=== PATIENT | female | born 1990 | race Hispanic/Latino ===

== ENCOUNTER 2024-01-28 16:31 | Emergency (ER) | payer SELFPAY ==
[2024-01-28] MEDS ORDERED: NA CHLORIDE 0.9% 1,000 ML ONE ×2 (17:50→19:47)
[2024-01-28] MEDS ORDERED: FAMOTIDINE 20 MG/2 ML VIAL IV ONE (17:50)
[2024-01-28] MEDS ORDERED: ONDANSETRON 4 MG/2 ML VIAL ONE (17:50)
[2024-01-28 17:55] LABS: Absolute Basophils 0.1 K/uL (0-0.5); Absolute Eosinophils 0.1 K/uL (0-0.5); Absolute Lymphocytes (CBC) 2.3 K/uL (0.7-4.9); Absolute Monocytes 0.9 K/uL (0.1-1.3); Absolute Neutrophil 9.9 K/uL (1.8-8.0); Basophils % 0.7 % (0-1.3); Eosinophils % 0.5 % (0-4.4); Hematocrit 40.1 % (36.0-45.0); Hemoglobin 13.6 g/dL (12.0-15.0); Lymphocytes % 17.7 % (15.3-44.8); MCH 29.6 pg (27.0-35.0); MCV 87.2 fL (80-100); MPV 8.1 fL (7.6-11.3); Monocytes % 6.9 % (3.3-12.3); Neutrophils % 74.2 % (41.7-73.7); Platelets 329 thou/uL (152-406); Red Cell Distribution Width 13.6 % (12.1-15.2)
[2024-01-28 18:09] LABS: Albumin 4.1 g/dL (3.4-5.0); Albumin/Globulin Ratio 1.2 (1.1-1.8); Bilirubin Total 0.8 mg/dL (0.2-1.0); Globulin 3.5 g/dL (2.3-3.5); Protein, Total 7.6 g/dL (6.4-8.2)
[2024-01-28 19:00] LABS: Specific Gravity < 1.005 (1.005-1.030)
[2024-01-28 19:01] LABS: Specific Gravity < 1.005 (1.005-1.030); Sqamous Epithelial <5 /HPF (None Seen); Urine Bacteria <20 /HPF (<20); Urine Bilirubin NEGATIVE (Negative); Urine Blood Negative (Negative); Urine Clarity Turbid (Clear); Urine Color Colorless (Yellow); Urine Crystals Unidentified Few /HPF (None Seen); Urine Culture Reflex Order NOT NEEDED; Urine Glucose NEGATIVE (Negative); Urine Ketones 2+ (Negative); Urine Microscopic Reflex YN ORDER UMIC; Urine Nitrite NEGATIVE (Negative); Urine Protein NEGATIVE (Negative); Urine RBC <5 /HPF (None Seen); Urine Urobilinogen Normal (Normal); Urine WBC <5 /HPF (<5); Urine WBC Clump Rare /HPF (None Seen); Urine Yeast (Budding) Trace /HPF (None Seen)
--- NOTE | 2024-01-28 20:24 | ER ---
Nurse's Notes [facility] Name: Felipa Escamilla Age: 33 yrs Sex: Female : 1990 Arrival Date: 01/28/2024 Time: 16:31 Bed 20 Private MD: Diagnosis: Less than 8 weeks gestation of -NEW DIAGNOSIS;Mild hyperemesis gravidarum;Hypokalemia;Elevated white blood cell count Presentation: 01/27 16:43 Chief complaint: N/V and diffuse abdominal pain x 1 week. Not tolerating fluids. hb Coronavirus screen: At this time, the client does not indicate any symptoms associated with coronavirus-19. Ebola Screen: No symptoms or risks identified at this time. Initial Sepsis Screen: Does the patient meet any 2 criteria? No. Patient's initial sepsis screen is negative. Does the patient have a suspected source of infection? No. Patient's initial sepsis screen is negative. Risk Assessment: Do you want to hurt yourself or someone else? Patient reports no desire to harm self or others. Onset of symptoms was January 21, 2024. 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 - Infectious Disease History:: Denies. - Social history:: Smoking status: Patient denies any tobacco usage or history of. Screenin:05 [facility] ED Fall Risk Assessment (Adult) History of falling in the last 3 months, me1 including since admission No falls in past 3 months (0 pts) Confusion or Disorientation No (0 pts) Intoxicated or Sedated No (0 pts) Impaired Gait No (0 pts) Mobility Assist Device Used No (0 pt) Altered Elimination No (0 pt) Score/Fall Risk Level 0 - 2 = Low Risk Maintained a safe environment, Provided non-skid footwear, Hourly rounding (assess needs \T\ fall precautionary measures) done. Abuse screen: Denies threats or abuse. Nutritional screening: No deficits noted. Tuberculosis screening: No symptoms or risk factors identified. Assessment: 17:05 General: Appears uncomfortable, well groomed, well developed, well nourished, Behavior me1 is calm, cooperative, appropriate for age, Reports N/V and diffuse abdominal pain x 1 week. Not tolerating fluids. Pain: Complains of pain in suprapubic area Pain does not radiate. Pain currently is 6 out of 10 on a pain scale. Quality of pain is described as crampy, Pain began gradually, a week ago Is continuous. Neuro: Level of Consciousness is awake, alert, obeys commands, Oriented to person, place, time, situation, Appropriate for age. Cardiovascular: Patient's skin is warm and dry. Respiratory: Airway is patent Trachea midline Respiratory effort is even, unlabored, Respiratory pattern is regular, symmetrical. GI: Abdomen is flat, Bowel sounds present X 4 quads. Abd is soft X 4 quads. : No signs and/or symptoms were reported regarding the genitourinary system. Denies burning with urination, urinary frequency. EENT: No signs and/or symptoms were reported regarding the EENT system. Derm: Skin is intact, is healthy with good turgor, Skin is pink, warm \T\ dry. Musculoskeletal: No signs and/or symptoms reported regarding the musculoskeletal system. 21:04 Reassessment: Discharge delayed for IV fluids to complete. me1 Vital Signs: 16:43 BP 135 / 84; Pulse 72; Resp 16; Temp 98.5; Pulse Ox 100% ; Weight 49.9 kg; Height 5 ft. hb 3 in. ; Pain 10/10; 18:00 BP 119 / 76; Pulse 57; Resp 16; Pulse Ox 100% ; me1 19:00 BP 115 / 61; Pulse 56; Resp 15; Pulse Ox 100% ; me1 20:00 BP 117 / 67; Pulse 66; Resp 14; Pulse Ox 99% ; me1 21:00 BP 117 / 70; Pulse 59; Resp 15; Temp 98.6; Pulse Ox 100% ; me1 16:43 Body Mass Index 19.49 (49.90 kg, 160.02 cm) hb 16:43 Pain Scale: Adult hb ED Course: 16:33 Patient arrived in ED. mr 16:38 Rodolfo Espitia MD is Attending Physician. gerardo 16:44 Triage completed. hb 16:45 Arm band placed on. hb 17:05 Patient has correct armband on for positive identification. Bed in low position. Call me1 light in reach. Side rails up X2. Provided Education on: POC. Verbalized understanding.. Client placed on continuous cardiac and pulse oximetry monitoring. NIBP monitoring applied. Pulse ox on. NIBP on. 17:05 No provider procedures requiring assistance completed. Initial lab(s) drawn, by ED me1 staff, sent to lab. Urine collected: clean catch specimen, cloudy. Inserted saline lock: 22 gauge in left antecubital area, using aseptic technique. 17:16 Solange Peterson, RN is Primary Nurse. me1 17:50 Warm blanket given. Verbal reassurance given. am7 17:58 Abdomen Limited US In Process Unspecified. EDMS 18:56 Radiology exam delayed due to test not completed at this time. nj 19:41 Quantitative Hcg Sent. me1 19:54 Abo/rh Typing Sent. me1 20:17 US Transvaginal Ob In Process Unspecified. EDMS 21:19 IV discontinued, intact, bleeding controlled, No redness/swelling at site. Pressure me1 dressing applied. Administered Medications: 17:56 Drug: Famotidine IVP 20 mg IVP once; dilute with 10 mL 0.9% NaCl; give over 2 minutes me1 Route: IVP; Site: left antecubital; 18:02 Follow up: Response: No adverse reaction me1 17:57 Drug: NS 0.9% IV 1000 ml IV at 1 bolus Per protocol; to be given as a bolus over 60 me1 minutes Route: IV; Rate: 1 bolus; Site: left antecubital; 21:20 Follow up: Response: No adverse reaction; IV Status: Completed infusion; IV Intake: me1 1000ml 17:58 Drug: Ondansetron IVP 4 mg IVP once; over 2 minutes Route: IVP; Site: left antecubital; me1 18:02 Follow up: Response: No adverse reaction; Nausea is decreased me1 19:54 Drug: NS 0.9% IV 1000 ml IV at 1 bolus Per protocol; to be given as a bolus over 60 me1 minutes Route: IV; Rate: 1 bolus; Site: left antecubital; 21:18 Follow up: Response: No adverse reaction; IV Status: Completed infusion; IV Intake: me1 1000ml 20:51 Drug: Potassium PO Effervescent Tablet 25 mEq PO once; dissolve in 4 ounces of water or me1 juice Route: PO; 21:06 Follow up: Response: No adverse reaction me1 Medication: 17:05 VIS not applicable for this client. me1 Intake: 21:18 IV: 1000ml; Total: 1000ml. me1 21:20 IV: 1000ml; Total: 2000ml. me1 Outcome: 20:23 Discharge ordered by . gerardo 21:19 Discharged to home ambulatory, [facility] [place] 21:19 Condition: stable 21:19 Discharge instructions given to patient, Instructed on discharge instructions, follow up and referral plans. medication usage, Demonstrated understanding of instructions, follow-up care, medications, Prescriptions given X 2, 21:19 Patient left the ED. me1 Signatures: Dispatcher [employer] EDOH Rodolfo Espitia MD MD cha Rivera, Felicia, Reg Reg mr Joan Matson RN RN Nemesio Astorga Michelle, RN RN ak1 Lesly Biswas am7 Corrections: (The following items were deleted from the chart) 19:24 17:56 In radiology for Abdomen Pelvis W Con+CT.RAD.BRZ. EDOH EDMS 19:58 16:43 Chief complaint: N/V and diffuse abdominal pain x 1 week. Not tolerating fluids. me1 ric
--- NOTE | 2024-01-28 20:24 | EDPHYS ---
Physician Documentation [facility] Name: Felipa Escamilla Age: 33 yrs Sex: Female : 1990 Arrival Date: 01/28/2024 Time: 16:31 Bed 20 Private MD: ED Physician Rodolfo Espitia HPI: 01/27 19:32 This 33 yrs old Female presents to ER via Ambulatory with complaints of gerardo Abdominal Pain, Vomiting. 19:32 The patient presents to the emergency department with nausea, vomiting, that is gerardo continuous. Onset: The symptoms/episode began/occurred 5 day(s) ago. Possible causes: unknown, , sick contacts. The symptoms are aggravated by nothing. The symptoms are alleviated by nothing. Associated signs and symptoms: Pertinent positives: abdominal pain, nausea. Severity of symptoms: At their worst the symptoms were mild moderate in the emergency department the symptoms are unchanged. The patient has experienced similar episodes in the past, a few times. 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 - Infectious Disease History:: Denies. - Social history:: Smoking status: Patient denies any tobacco usage or history of. ROS: 19:33 Constitutional: Negative for fever, chills, and weight loss, Eyes: Negative for injury, gerardo pain, redness, and discharge, ENT: Negative for injury, pain, and discharge, Neck: Negative for injury, pain, and swelling, Cardiovascular: Negative for chest pain, palpitations, and edema, Respiratory: Negative for shortness of breath, cough, wheezing, and pleuritic chest pain, Back: Negative for injury and pain, : Negative for injury, bleeding, discharge, and swelling, MS/Extremity: Negative for injury and deformity, Skin: Negative for injury, rash, and discoloration, Neuro: Negative for headache, weakness, numbness, tingling, and seizure, Psych: Negative for depression, anxiety, suicide ideation, homicidal ideation, and hallucinations, Allergy/Immunology: Negative for hives, rash, and allergies, Endocrine: Negative for neck swelling, polydipsia, polyuria, polyphagia, and marked weight changes, Hematologic/Lymphatic: Negative for swollen nodes, abnormal bleeding, and unusual bruising, 19:33 Abdomen/GI: Positive for nausea, vomiting, abdominal cramps, of the suprapubic area, Exam: 19:33 Constitutional: This is a well developed, well nourished patient who is awake, alert, gerardo and in no acute distress. Head/Face: Normocephalic, atraumatic. Eyes: Pupils equal round and reactive to light, extra-ocular motions intact. Lids and lashes normal. Conjunctiva and sclera are non-icteric and not injected. Cornea within normal limits. Periorbital areas with no swelling, redness, or edema. ENT: Nares patent. No nasal discharge, no septal abnormalities noted. Tympanic membranes are normal and external auditory canals are clear. Oropharynx with no redness, swelling, or masses, exudates, or evidence of obstruction, uvula midline. Mucous membranes moist. Neck: Trachea midline, no thyromegaly or masses palpated, and no cervical lymphadenopathy. Supple, full range of motion without nuchal rigidity, or vertebral point tenderness. No Meningismus. Chest/axilla: Normal chest wall appearance and motion. Nontender with no deformity. No lesions are appreciated. Cardiovascular: Regular rate and rhythm with a normal S1 and S2. No gallops, murmurs, or rubs. Normal PMI, no JVD. No pulse deficits. Respiratory: Lungs have equal breath sounds bilaterally, clear to auscultation and percussion. No rales, rhonchi or wheezes noted. No increased work of breathing, no retractions or nasal flaring. Back: No spinal tenderness. No costovertebral tenderness. Full range of motion. Skin: Warm, dry with normal turgor. Normal color with no rashes, no lesions, and no evidence of cellulitis. MS/ Extremity: Pulses equal, no cyanosis. Neurovascular intact. Full, normal range of motion., bilateral aka Neuro: Awake and alert, GCS 15, oriented to person, place, time, and situation. Cranial nerves II-XII grossly intact. Motor strength 5/5 in all extremities. Sensory grossly intact. Cerebellar exam normal. Normal gait. Psych: Awake, alert, with orientation to person, place and time. Behavior, mood, and affect are within normal limits. 19:33 Abdomen/GI: Inspection: abdomen appears normal, Bowel sounds: normal, Palpation: mild abdominal tenderness, in the suprapubic area, Liver: no appreciated palpable abnormalities, Hernia: not appreciated, Vital Signs: 16:43 BP 135 / 84; Pulse 72; Resp 16; Temp 98.5; Pulse Ox 100% ; Weight 49.9 kg; Height 5 ft. hb 3 in. ; Pain 10/10; 18:00 BP 119 / 76; Pulse 57; Resp 16; Pulse Ox 100% ; me1 19:00 BP 115 / 61; Pulse 56; Resp 15; Pulse Ox 100% ; me1 20:00 BP 117 / 67; Pulse 66; Resp 14; Pulse Ox 99% ; me1 21:00 BP 117 / 70; Pulse 59; Resp 15; Temp 98.6; Pulse Ox 100% ; me1 16:43 Body Mass Index 19.49 (49.90 kg, 160.02 cm) hb 16:43 Pain Scale: Adult hb MDM: 16:38 Medical Screening Exam initiated gerardo 17:41 Medical Screening Exam initiated gerardo 19:34 Differential diagnosis: Nonspecific abd pain, gastritis, viral gastroenteritis, gerardo gastroenteritis, Ectopic . Data reviewed: vital signs, nurses notes, lab test result(s), radiologic studies, ultrasound. Consideration of Admission/Observation Escalation of care including admission/observation considered. I considered the following discharge prescriptions or medication management in the emergency department Medications were administered in the Emergency Department. See MAR. Independent interpretation of the following test(s) in the Emergency Department Radiology Department Ultrasound: My interpretation is GB , . Test considered but Not performed: CT: NO CT . Historians other than the Patient: PT WELL INFORMED. Care significantly affected by the following chronic conditions: SEIZURES, A0. 01/27 16:39 Order name: CBC with Diff; Complete Time: 18:19 [facility] 01/27 16:39 Order name: CMP; Complete Time: 18:19 [facility] 01/27 16:39 Order name: Lipase; Complete Time: 18:19 [facility] 01/27 16:39 Order name: Test, Urine; Complete Time: 19:19 [facility] 01/27 16:39 Order name: Urinalysis w/ reflexes; Complete Time: 19:19 [facility] 01/27 19:22 Order name: Quantitative Hcg; Complete Time: 20:23 [facility] 01/27 19:39 Order name: Abo/rh Typing; Complete Time: 20:23 [facility] 01/27 16:39 Order name: Abdomen Limited US [facility] 01/27 19:22 Order name: US Transvaginal Ob [facility] 01/27 16:39 Order name: IV Saline Lock; Complete Time: 17:50 [facility] 01/27 16:39 Order name: Labs collected and sent; Complete Time: 17:54 [facility] 01/27 20:01 Order name: PO challenge: JUICE; Complete Time: 20:51 gerardo Administered Medications: 17:56 Drug: Famotidine IVP 20 mg IVP once; dilute with 10 mL 0.9% NaCl; give over 2 minutes me1 Route: IVP; Site: left antecubital; 18:02 Follow up: Response: No adverse reaction me1 17:57 Drug: NS 0.9% IV 1000 ml IV at 1 bolus Per protocol; to be given as a bolus over 60 me1 minutes Route: IV; Rate: 1 bolus; Site: left antecubital; 21:20 Follow up: Response: No adverse reaction; IV Status: Completed infusion; IV Intake: me1 1000ml 17:58 Drug: Ondansetron IVP 4 mg IVP once; over 2 minutes Route: IVP; Site: left antecubital; me1 18:02 Follow up: Response: No adverse reaction; Nausea is decreased me1 19:54 Drug: NS 0.9% IV 1000 ml IV at 1 bolus Per protocol; to be given as a bolus over 60 me1 minutes Route: IV; Rate: 1 bolus; Site: left antecubital; 21:18 Follow up: Response: No adverse reaction; IV Status: Completed infusion; IV Intake: me1 1000ml 20:51 Drug: Potassium PO Effervescent Tablet 25 mEq PO once; dissolve in 4 ounces of water or me1 juice Route: PO; 21:06 Follow up: Response: No adverse reaction me1 Disposition Summary: 01/28/24 20:23 Discharge Ordered Notes: Location: Home gerardo Problem: new gerardo Symptoms: have improved gerardo Condition: Stable gerardo Diagnosis - Less than 8 weeks gestation of - NEW DIAGNOSIS gerardo - Mild hyperemesis gravidarum gerardo - Hypokalemia gerardo - Elevated white blood cell count gerardo Followup: gerardo - With: Private Physician - When: 2 - 3 days - Reason: Recheck today's complaints, Continuance of care, Re-evaluation by your physician Discharge Instructions: - Discharge Summary Sheet gerardo - Potassium Content of Foods gerardo - Hyperemesis Gravidarum gerardo - Morning Sickness, [id number] gerardo - Care gerardo - Morning Sickness gerardo - First Trimester of , [id number] gerardo - First Trimester of gerardo - Hypokalemia [facility] Forms: - Medication Reconciliation Form gerardo - Antibiotic Education gerardo - Prescription Opioid Use gerardo - Patient Portal Instructions [facility] - Leadership Thank You Letter [facility] Prescriptions: - Diclegis 10-10 mg Oral tablet, delayed release (enteric coated) - take 1 tablet ORAL route 3 times per day PRN; 40 tablet; Refills: 0, Product [facility] Selection Permitted - ondansetron 4 mg Oral Tablet,disintegrating - take 1 tablet ORAL route every 6-8 hours for 5 days; 20 tablet; Refills: 0, gerardo Product Selection Permitted Signatures: Dispatcher [employer] Rodolfo Arenas MD MD [facility] Joan Matson RN RN Solange Peterson RN RN me1 Corrections: (The following items were deleted from the chart) 16:39 16:39 CBC+H.LAB.BRZ ordered. EDMS EDMS 16:39 16:39 COMPREHENSIVE METABOLIC PANEL+C.LAB.BRZ ordered. EDMS EDMS 16:39 16:39 LIPASE+C.LAB.BRZ ordered. EDMS EDMS 16:39 16:39 Test, Urine+UC.LAB.BRZ ordered. EDMS EDMS 16:39 16:39 Urinalysis+U.LAB.BRZ ordered. EDMS EDMS 19:24 16:39 Abdomen Pelvis W Con+CT.RAD.BRZ ordered. EDMS EDMS
--- NOTE | 2024-01-28 20:30 | RAD REPORT ---
EXAMINATION: US FIRST TRIMESTER TRANSVAGINAL WITH DOPPLER CLINICAL INDICATION: with pelvic pain TECHNIQUE: Real-time obstetrical ultrasonography of the maternal pelvis and first trimester was performed transvaginally. Color and spectral Doppler evaluation of the ovaries was performed. COMPARISON: No prior exam. FINDINGS: The uterus measures 7 x 4 x 6 cm. The uterus is retroverted. A pole is present within the endometrium measuring 8 mm. Cardiac activity 133 bpm. Right ovary normal in size and echotexture. Left ovary normal in size and echotexture Right and left adnexa unremarkable No significant free fluid IMPRESSION: Single live intrauterine with an estimated gestational age 6 weeks 5 days ANUPAMA 09/17/2024 Non visualization of a gestational sac within the endometrium. This could be a viable intrauterine pr egnancy in which the gestational sac not seen secondary to the early gestation. Other considerations include an and even ectopic . This should be correlated clinically and with serial beta-hCG levels. Follow-up endovaginal sonogram in one week recommended for reevaluation
[2024-01-28] MEDS ORDERED: POTASSIUM 25 MEQ EFFERV TAB ONE (20:50)
--- NOTE | 2024-01-28 21:20 | RAD REPORT ---
EXAM: Right upper quadrant ultrasound. CLINICAL HISTORY: Abdominal pain COMPARISON: None FINDINGS: A gallstone is not seen. Gallbladder wall not thickened. Biliary tree normal caliber IMPRESSION: No significant abnormalities displayed
[2024-01-28 22:09] VITALS: BP 117/70; TEMP 98.6; O2SAT 100
== END 2024-01-28 21:19 | disposition home or self-care (01) ==
LOC: ER 16:31
DX: O21.0 Mild hyperemesis gravidarum (principal); O99.281 Endocrine, nutritional and metabolic diseases complicating pregnancy, first trimester; Z3A.01 Less than 8 weeks gestation of pregnancy; E87.6 Hypokalemia; D72.829 Elevated white blood cell count, unspecified
CPT/HCPCS: 36415; 76705; 76817; 80053; 81001; 81025; 83690; 84702; 85025; 86900; 86901; 96361; 96374; 96375; 99284; J2405; J7030